=== PATIENT | male | born 1995 | race Two or more races ===

== ENCOUNTER 2016-09-27 20:15 | Emergency (ER) | payer MEDICAID ==
[~2016-09-27] VITALS: Ht 175.3 cm; Wt 93.0 kg
[2016-09-28 00:07] VITALS: BP 136/82
[2016-09-28] MEDS ORDERED: IBUPROFEN 600 MG TAB PO ONE (00:15)
== END 2016-09-28 00:42 | disposition home or self-care (01) ==
LOC: ER 20:20
DX: S40.011A Contusion of right shoulder, initial encounter (principal); M79.1 Myalgia; V49.59XA Passenger injured in collision with other motor vehicles in traffic accident, initial encounter; Y93.89 Activity, other specified; Y99.8 Other external cause status; Y92.89 Other specified places as the place of occurrence of the external cause
CPT/HCPCS: 73000